=== PATIENT | female | born 2005 | race Caucasian/White ===

== ENCOUNTER 2024-08-11 19:32 | Emergency (ER) | payer MEDICAID ==
[2024-08-11 20:09] LABS: BASOPHILS PERCENT AUTO 0.1 % (0.0-1.0); HEMATOCRIT 41.6 % (37.0-47.0); HEMOGLOBIN 14.3 gm/dl (12.0-16.0); IMMATURE GRAN ABSOLUTE AUTO 0.05 K/mm3 (0.00-0.05); IMMATURE GRAN PERCENT AUTO 0.3 % (0.0-0.4); LYMPHOCYTES ABSOLUTE AUTO 0.9 K/mm3 (1.0-4.8); MEAN CORPUSCULAR HEMOGLOBIN 30.1 pg (28.0-32.0); MEAN CORPUSCULAR HGB CONC 34.4 g/dl (32.0-36.0); MEAN CORPUSCULAR VOLUME 87.6 fl (83.0-99.0); MEAN PLATELET VOLUME 9.7 fl (9.4-12.3); MONOCYTES ABSOLUTE AUTO 0.7 K/mm3 (0.0-0.8); MONOCYTES PERCENT AUTO 5.1 % (0.0-8.0); NEUTROPHILS ABSOLUTE AUTO 12.8 K/mm3 (1.8-7.7); NEUTROPHILS PERCENT AUTO 88.5 % (41.0-71.0); PLATELET COUNT,PLT 235 K/mm3 (150-400); RED BLOOD CELL COUNT 4.75 M/mm3 (4.10-5.30); WHITE BLOOD CELL COUNT,WBC 14.43 K/mm3 (3.9-11.3)
[2024-08-11] MEDS ORDERED: Sodium Chloride 0.9% 10 ML Syringe FLUSH PRN (20:13)
[2024-08-11] MEDS: Ondansetron 4 MG Tab.DIS PO ONE (20:26)
[2024-08-11] MEDS: LORazepam 1 MG Tab PO ONE (20:26)
[2024-08-11 20:30] LABS: A/G RATIO 1.1 (1-2); ALBUMIN 3.9 g/dl (3.4-5.0); ANION GAP 19.2 (5-15); BILIRUBIN TOTAL 1.3 mg/dL (0.2-1.0); BUN/CREATININE RATIO 11.3 (14-18); C-REACTIVE PROTEIN 11.03 mg/dL (<0.30); CALCIUM 9.2 mg/dL (8.5-10.1); CREATININE 0.8 mg/dL (0.55-1.02); EST CRCL DRUG DOSING (CG) 104.83 mL/min; POTASSIUM,K 3.2 mEq/L (3.5-5.1); PROTEIN TOTAL,TP 7.6 g/dl (6.4-8.2)
[2024-08-11 20:34] LABS: APPEARANCE,URINE SLT CLOUDY (Clear); BILIRUBIN,URINE 1+ (Negative); COLOR,URINE YELLOW (Yellow); GLUCOSE,URINE NEGATIVE (Negative); KETONES,URINE 4+ (Negative); LEUKOCYTE ESTERASE,URINE 1+ (Negative); NITRITE,URINE NEGATIVE (Negative); OCCULT BLOOD,URINE 1+ (Negative); PH,URINE 6.5 (5.0-8.0); PROTEIN,URINE 2+ (Negative)
[2024-08-11 20:44] LABS: BACTERIA,URINE FEW /hpf (FEW); EPITHELIAL CELLS,URINE 0-5 /hpf (0-5); MUCUS,URINE MODERATE /hpf (FEW); RBC,URINE 0-5 /hpf (0-5)
[2024-08-11] MEDS: Sodium Chloride 0.9% 1,000 ML IV ONE (21:16)
[2024-08-11] MEDS: Iopamidol 755 Mg/ML 100 ML Bottle IVPUSH ONE (21:16)
[2024-08-11] MEDS: Sodium Chloride 0.9% 100 ML IV SCH (21:17)
[2024-08-11] MEDS: Levofloxacin 250 MG Tab PO ONE (22:28)
== END 2024-08-11 22:50 | disposition home or self-care (01) ==
LOC: JD.ED 19:32
DX: N12 Tubulo-interstitial nephritis, not specified as acute or chronic (principal); Z88.0 Allergy status to penicillin; Z88.8 Allergy status to other drugs, medicaments and biological substances; Z88.2 Allergy status to sulfonamides; Z79.899 Other long term (current) drug therapy
CPT/HCPCS: 36415; 74177; 80053; 81001; 81025; 83690; 85025; 86140; 96360; 99284; A9270; J7030; Q9967